=== PATIENT | male | born 1935 | race Caucasian/White ===

== ENCOUNTER 2017-01-06 15:47 | Emergency (ER) | payer OTHER ==
[~2017-01-06] VITALS: Ht 175.3 cm; Wt 77.7 kg
[~2017-01-06 15:47] MED LIST: ABILIFY2 MG PO; ALEVE220 MG PO; ASPIRIN EC325 MG PO; AVAPRO150 MG PO; CELECOXIB200 MG PO; FINASTERIDE5 MG PO; HYDROCODON-ACE1 EAC7 PO; HYTRIN5 MG PO; LO-DOSE ASPIRIN81 M1 PO; PROZAC20 MG PO; SYNTHROID50 MCG PO; TERAZOSIN HCL10 MG PO
[2017-01-06 17:20] LABS: BASOPHIL COUNT 0.1 K/uL (0-0.1); EOSINOPHIL COUNT 0.2 K/uL (0-0.3); IMMATURE GRANULOCYTE (%) 0.3 % (0.0-0.7); INSTRUMENT ABS NEUTROPHIL CT 5.1 K/uL; LYMPHOCYTE COUNT 1.5 K/uL (1.0-2.8); MCH 29.2 PG (29.0-34.0); MCHC 34.8 G/DL (30.0-36.0); MCV 84.1 FL (86-99); MEAN PLAT.VOLUME 9.6 uM^3 (9.0-12.4); MONOCYTE (%) 6.9 % (3-12); MONOCYTE COUNT 0.5 K/uL (0-0.8); NEUTROPHIL (%) 69.9 % (45-76); NEUTROPHIL COUNT 5.1 K/uL (1.8-6.4); PLATELET COUNT 260 K/uL (156-360); RBC DIS.WIDTH-CV 12.9 % (11.8-14.6); RBC DIS.WIDTH-SD 39.5 % (39-53); RED BLOOD COUNT 5.71 M/uL (4.00-5.50); WHITE BLOOD COUNT 7.3 K/uL (4.1-10.2)
[2017-01-06 17:35] LABS: CHLORIDE 107 mEq/L (99-109); POTASSIUM 4.4 mEq/L (3.7-5.4); SODIUM 138 mEq/L (136-147)
[2017-01-06 17:37] LABS: GLUCOSE 96 mg/dL (70-99)
[2017-01-06 17:38] LABS: ANION GAP 6 MEQ/L (2-14)
[2017-01-06 17:40] LABS: GFR ESTIMATE (CALCULATED) 56 mL/min/
[2017-01-06 17:41] LABS: UREA NITROGEN (BUN) 26 mg/dL (9-23)
[2017-01-06 17:50] LABS: DIGOXIN 1.1 ng/mL (0.8-2.0)
[2017-01-06] MEDS ORDERED: LEVOTHYROXINE100 MCG PO (18:13)
[2017-01-06] MEDS ORDERED: DIGOXIN250 MCG PO (18:13)
[2017-01-06] MEDS ORDERED: XARELTO10 MG PO (18:13)
[2017-01-06] MEDS ORDERED: METHYLPHENIDATE10 M1 PO (18:13)
[2017-01-06] MEDS ORDERED: CARBIDOPA/LEVO1 EACH PO (18:14)
[2017-01-06] MEDS ORDERED: VALIUM5 MG PO (19:35)
[2017-01-06] MEDS ORDERED: MECLIZINE HCL25 MG PO (19:35)
[2017-01-06 20:11] VITALS: BP 159/81
== END 2017-01-06 20:12 | disposition home or self-care (01) ==
LOC: EME 15:47
PROVIDERS: Emergency Medicine
DX: R42 Dizziness and giddiness (principal); I10 Essential (primary) hypertension; I48.91 Unspecified atrial fibrillation; G20 Parkinson's disease; F32.9 Major depressive disorder, single episode, unspecified; Z79.01 Long term (current) use of anticoagulants
CPT/HCPCS: 70450; 80048; 80162; 85025; 93005; 99281; 99285; J7040

== ENCOUNTER → 2017-07-26 | Outpatient (CLI) | payer OTHER ==
[~2017-07-26] VITALS: Ht 172.7 cm; Wt 79.4 kg
[~2017-07-26] MED LIST changes: +CARBIDOPA/LEVO1 EACH PO; +DIGOXIN250 MCG PO; +EFFEXOR37.5 MG PO; +FLOMAX0.4 MG PO; +LANOXIN250 MCG PO; +LEVO-T100 MCG PO; +LEVOTHYROXINE100 MCG PO; +MECLIZINE HCL25 MG PO; +MEN'S MULTI-VI1 EACH PO; +METHYLPHENIDATE10 M1 PO; +MIRAPEX0.5 MG PO; +MYRBETRIQ50 MG PO; +PROBIOTIC1 EAC1 PO; +RITALIN20 MG PO; +SINEMET 25-1001 EACH PO; +VALIUM5 MG PO; +VITAMIN B12 PO; +XARELTO10 MG PO
[2017-07-26 12:55] LABS: HEMATOCRIT 53.9 % (38.0-50.0); MCH 29.4 PG (29.0-34.0); MCHC 34.3 G/DL (30.0-36.0); MCV 85.6 FL (86-99); MEAN PLAT.VOLUME 9.7 uM^3 (9.0-12.4); PLATELET COUNT 297 K/uL (156-360); RBC DIS.WIDTH-CV 12.8 % (11.8-14.6); RBC DIS.WIDTH-SD 39.3 % (39-53); WHITE BLOOD COUNT 9.2 K/uL (4.1-10.2)
[2017-07-26 13:07] LABS: ANION GAP 13 MEQ/L (2-14); CHLORIDE 102 MEQ/L (99-109); POTASSIUM 4.7 MEQ/L (3.7-5.4); SAMPLE HEMOLYSIS CHECK 1; SAMPLE ICTERIC CHECK 0; SAMPLE LIPEMIA CHECK 0; SODIUM 137 MEQ/L (136-147)
[2017-07-26 13:12] LABS: GFR ESTIMATE (CALCULATED) > 59 mL/min/ (58.99-99999); GLUCOSE 107 mg/dL (70-99); UREA NITROGEN (BUN) 18 mg/dL (9-23)
== END | disposition home or self-care (01) ==
LOC: AMB 12:00
PROVIDERS: Surgery
PROC: 0DJD8ZZ Inspection of Lower Intestinal Tract, Via Natural or Artificial Opening Endoscopic (ICD-10-PCS; principal; 2017-07-26)
DX: Z12.11 Encounter for screening for malignant neoplasm of colon (principal); Z86.010 Personal history of colon polyps; K57.30 Diverticulosis of large intestine without perforation or abscess without bleeding; R05 Cough; R09.02 Hypoxemia; G20 Parkinson's disease; N40.0 Benign prostatic hyperplasia without lower urinary tract symptoms; I10 Essential (primary) hypertension; E03.9 Hypothyroidism, unspecified; M19.90 Unspecified osteoarthritis, unspecified site; Z87.891 Personal history of nicotine dependence; Z79.01 Long term (current) use of anticoagulants
CPT/HCPCS: 71010; 80048; 85027; 99202